=== PATIENT | female | born 1955 | race Caucasian/White ===

== ENCOUNTER 2023-08-13 10:52 | Emergency (ER) | payer MEDICAID ==
[~2023-08-13] VITALS: Ht 154.9 cm; Wt 81.6 kg
[2023-08-13 10:57] VITALS: BP 157/99; PULSE 77; RESP 15; TEMP 97.3; O2SAT 97
[2023-08-13] MEDS ORDERED: FAMOTIDINE 20 MG TAB PO ONE (11:15)
[2023-08-13] MEDS ORDERED: ALUMINUM HYD/MAG/SIMETHICONE 30 ML UDC PO ONE (11:15)
[2023-08-13] MEDS ORDERED: ACETAMINOPHEN EXTRA STRENGTH 500 MG TAB PO ONE (11:15)
[2023-08-13 12:01] LABS: BASOPHILS # (AUTO) 0.1 K/uL (0.00-0.22); BASOPHILS % (AUTO) 0.7 % (0.0-2.0); EOSINOPHILS % (AUTO) 0.6 % (0.0-4.0); HEMOGLOBIN 12.7 g/dL (12.0-16.0); LYMPHOCYTES # (AUTO) 2.2 K/uL (2.5-16.5); MEAN CORPUSCULAR HEMOGLOBIN 31 pg (27-31); MEAN CORPUSCULAR HGB CONC 33 g/dL (33-37); MEAN CORPUSCULAR VOLUME 92.3 fL (80-94); MONOCYTES # (AUTO) 0.6 K/uL (0.8-1.0); MONOCYTES % (AUTO) 7.6 % (1.7-9.3); NEUTROPHILS # (AUTO) 4.6 K/uL (1.8-7.7); NEUTROPHILS % (AUTO) 62.1 % (42.2-75.2); PLATELET COUNT (AUTO) 320 K/uL (140-450); RED BLOOD CELL COUNT(AUTO) 4.12 MIL/uL (4.20-5.40); RED CELL DISTRIBUTION WIDTH 13.3 % (11.6-13.7); WHITE BLOOD COUNT (AUTO) 7.5 K/uL (4.8-10.8)
[2023-08-13 12:25] LABS: APPEARANCE,URINE CLEAR (CLEAR); BILIRUBIN,URINE NEGATIVE (NEGATIVE); BLOOD, URINE NEGATIVE (NEGATIVE); COLOR,URINE YELLOW (YELLOW); LEUKOCYTE ESTERASE ,URINE 1+ (NEGATIVE); NITRITE, URINE NEGATIVE (NEGATIVE); PH,URINE 7.5 (5.0-9.0); PROTEIN,URINE NEGATIVE (NEGATIVE); UGLUCOSE NEGATIVE (NEGATIVE); UROBILINOGEN,URINE 0.2 EU/dL (0.2 - 1)
[2023-08-13 12:27] LABS: ALANINE AMINOTRANSFERASE 35 U/L (12-78); ALBUMIN 3.7 g/dL (3.4-5.0); ALKALINE PHOSPHATASE 86 U/L (50-136); ASPARTATE AMINOTRANSFERASE 27 U/L (15-37); BILIRUBIN,DIRECT 0.1 mg/dL (0.0-0.3); LIPASE 24 U/L (16-77); TOTAL BILIRUBIN 0.5 mg/dL (0.0-1.0); TOTAL PROTEIN, SERUM 7.8 g/dL (6.4-8.2)
[2023-08-13 12:50] LABS: RBC,URINE 0-5 /HPF (0-5)
[2023-08-13 12:51] LABS: BACTERIA,URINE FEW /HPF (None Seen); MUCUS,URINE None Seen /LPF (None Seen); SQUAMOUS EPITHELIAL CELL,UR 0-3 (FEW) /LPF (0-3 (FEW)); TRICHOMONAS,URINE None Seen /HPF (None Seen); WHITE BLOOD CELL CASTS,URINE None Seen /LPF (None Seen); YEAST,URINE None Seen /HPF (None Seen)
[2023-08-13 13:12] LABS: ANION GAP 17.5 (8-16); CALCIUM 9.3 mg/dL (8.5-10.1); CARBON DIOXIDE 24.4 mmol/L (21-32); CREATININE 0.8 mg/dL (0.6-1.3); POTASSIUM 3.9 mmol/L (3.5-5.1)
[2023-08-13] MEDS ORDERED: OMEP20EC11 PO (13:29)
[2023-08-13] MEDS ORDERED: CEPH-588 PO (13:30)
== END 2023-08-13 13:37 | disposition home or self-care (01) ==
LOC: MED 10:52
DX: N39.0 Urinary tract infection, site not specified (principal); K29.70 Gastritis, unspecified, without bleeding; E03.9 Hypothyroidism, unspecified; Z79.899 Other long term (current) drug therapy
CPT/HCPCS: 36415; 76705; 80048; 80076; 81001; 83690; 84484; 85025; 87086; 93005; 99284; Q0092

== ENCOUNTER 2024-01-18 08:06 | Day surgery (SDC) | payer MEDICAID ==
[~2024-01-18] VITALS: Ht 165.1 cm; Wt 72.6 kg
[~2024-01-18 08:06] MED LIST: CEPH-588 PO; OMEP20EC11 PO
[2024-01-18] MEDS ORDERED: fentaNYL citrate 0.05 MG/ML VIAL ONE (09:07)
[2024-01-18] MEDS: fentaNYL citrate 0.05 MG/ML VIAL IVP ONE (09:18)
[2024-01-18] MEDS: LIDOCAINE 2% 100 MG/5 ML UJET TP ONE (09:32)
== END 2024-01-18 10:14 | disposition home or self-care (01) ==
LOC: MDS 08:06 → MMU 08:09 → MDS 10:14
PROVIDERS: ATTEND Internal Medicine Gastroenterology
DX: Z12.11 Encounter for screening for malignant neoplasm of colon (principal); K63.5 Polyp of colon; E03.9 Hypothyroidism, unspecified; Z98.891 History of uterine scar from previous surgery; Z90.89 Acquired absence of other organs; Z98.890 Other specified postprocedural states; Z79.899 Other long term (current) drug therapy
CPT/HCPCS: 45385; J3010

== ENCOUNTER 2024-03-09 13:01 | Emergency (ER) | payer MEDICAID, OTHER ==
[~2024-03-09] VITALS: Ht 154.9 cm; Wt 84.4 kg
[~2024-03-09 13:01] MED LIST changes: -CEPH-588 PO
[2024-03-09 13:05] VITALS: BP 131/86; PULSE 80; RESP 17; TEMP 98.9; O2SAT 97
[2024-03-09] MEDS: IBUPROFEN 600 MG TAB PO ONE (13:46)
[2024-03-09] MEDS ORDERED: IBUP-2213 PO (14:10)
[2024-03-09 14:39] VITALS: BP 125/88; PULSE 66; RESP 16; TEMP 98; O2SAT 99
== END 2024-03-09 14:39 | disposition home or self-care (01) ==
LOC: MED 13:01
DX: M79.672 Pain in left foot (principal); M79.671 Pain in right foot; R03.0 Elevated blood-pressure reading, without diagnosis of hypertension; E03.9 Hypothyroidism, unspecified; Z79.899 Other long term (current) drug therapy
CPT/HCPCS: 73630; 99283

== ENCOUNTER 2024-03-15 12:43 | Emergency (ER) | payer OTHER ==
[~2024-03-15] VITALS: Ht 152.4 cm; Wt 77.1 kg
[~2024-03-15 12:43] MED LIST changes: +IBUP-2213 PO
[2024-03-15 12:52] VITALS: BP 148/85; PULSE 78; RESP 16; TEMP 98; O2SAT 98
[2024-03-15 13:10] VITALS: O2SAT 98
[2024-03-15 13:20] LABS: APPEARANCE,URINE CLEAR (CLEAR); BILIRUBIN,URINE NEGATIVE (NEGATIVE); BLOOD, URINE TRACE-I (NEGATIVE); COLOR,URINE YELLOW (YELLOW); LEUKOCYTE ESTERASE ,URINE TRACE (NEGATIVE); NITRITE, URINE NEGATIVE (NEGATIVE); PROTEIN,URINE NEGATIVE (NEGATIVE); UGLUCOSE NEGATIVE (NEGATIVE); UROBILINOGEN,URINE 0.2 EU/dL (0.2 - 1)
[2024-03-15 13:45] LABS: RBC,URINE 0-5 /HPF (0-5); WBC,URINE 0-5 /HPF (0-5)
[2024-03-15 13:46] LABS: BACTERIA,URINE FEW /HPF (None Seen); SQUAMOUS EPITHELIAL CELL,UR 0-3 (FEW) /LPF (0-3 (FEW))
[2024-03-15] MEDS ORDERED: PYR100 PO (13:51)
[2024-03-15] MEDS ORDERED: NITR100C7 PO (13:51)
== END 2024-03-15 13:58 | disposition home or self-care (01) ==
LOC: MED 12:43
DX: N30.90 Cystitis, unspecified without hematuria (principal); R03.0 Elevated blood-pressure reading, without diagnosis of hypertension; E03.9 Hypothyroidism, unspecified; Z79.1 Long term (current) use of non-steroidal anti-inflammatories (NSAID); Z79.899 Other long term (current) drug therapy
CPT/HCPCS: 81001; 99283

== ENCOUNTER 2024-06-16 20:43 | Emergency (ER) | payer OTHER ==
[~2024-06-16] VITALS: Ht 157.5 cm; Wt 77.1 kg
[~2024-06-16 20:43] MED LIST changes: +NITR100C7 PO; +PYR100 PO
[2024-06-16 20:56] VITALS: BP 174/87; PULSE 81; RESP 20; TEMP 98.6; O2SAT 94
[2024-06-16] MEDS ORDERED: WATER STERILE 10 ML MC ONE (23:32)
[2024-06-16] MEDS ORDERED: methylPREDNISolone SS 125 MG/2 ML VIAL ONE (23:32)
[2024-06-16 23:38] VITALS: BP 174/87; PULSE 81; RESP 20; TEMP 98.6; O2SAT 94
[2024-06-16] MEDS: diphenhydrAMINE 50 MG/ML VIAL IM ONE (23:42)
[2024-06-16] MEDS: methylPREDNISolone SS 125 MG in WATER STERILE 2 ML IM ONE (23:44)
[2024-06-17] MEDS ORDERED: METH4TAB1 PO (00:21)
[2024-06-17] MEDS ORDERED: FEXO180T82 PO (00:21)
== END 2024-06-16 23:30 | disposition home or self-care (01) ==
LOC: MED 20:43
DX: T78.49XA Other allergy, initial encounter (principal); E03.9 Hypothyroidism, unspecified; E03.0 Congenital hypothyroidism with diffuse goiter; Z79.899 Other long term (current) drug therapy; X58.XXXA Exposure to other specified factors, initial encounter
CPT/HCPCS: 96372; 99284; J1200; J2919

== ENCOUNTER 2024-06-21 17:56 | Emergency (ER) | payer OTHER ==
[~2024-06-21] VITALS: Ht 154.9 cm; Wt 82.7 kg
[~2024-06-21 17:56] MED LIST changes: +FEXO180T82 PO; +METH4TAB1 PO
[2024-06-21 18:06] VITALS: BP 196/97; PULSE 78; RESP 18; TEMP 97.6; O2SAT 96
[2024-06-21 19:47] LABS: BASOPHILS % (AUTO) 0.6 % (0.0-2.0); EOSINOPHILS % (AUTO) 0.4 % (0.0-4.0); HEMATOCRIT 38.4 % (36-48); HEMOGLOBIN 12.7 g/dL (12.0-16.0); LYMPHOCYTES # (AUTO) 2.5 K/uL (2.5-16.5); LYMPHOCYTES % (AUTO) 29.6 % (20.5-51.1); MEAN CORPUSCULAR HEMOGLOBIN 31 pg (27-31); MEAN CORPUSCULAR HGB CONC 33 g/dL (33-37); MONOCYTES # (AUTO) 0.6 K/uL (0.8-1.0); MONOCYTES % (AUTO) 7.3 % (1.7-9.3); NEUTROPHILS # (AUTO) 5.2 K/uL (1.8-7.7); NEUTROPHILS % (AUTO) 62.1 % (42.2-75.2); PLATELET COUNT (AUTO) 288 K/uL (140-450); RED BLOOD CELL COUNT(AUTO) 4.17 MIL/uL (4.20-5.40); WHITE BLOOD COUNT (AUTO) 8.3 K/uL (4.8-10.8)
[2024-06-21 20:02] LABS: ANION GAP 13.9 (8-16); CALCIUM 8.4 mg/dL (8.5-10.1); CARBON DIOXIDE 28.7 mmol/L (21-32); CREATININE 0.9 mg/dL (0.6-1.3); POTASSIUM 3.6 mmol/L (3.5-5.1)
[2024-06-21 20:06] LABS: ALBUMIN 3.6 g/dL (3.4-5.0); BILIRUBIN,DIRECT 0.1 mg/dL (0.0-0.3); TOTAL BILIRUBIN 0.2 mg/dL (0.0-1.0); TOTAL PROTEIN, SERUM 7.4 g/dL (6.4-8.2)
[2024-06-21 20:42] VITALS: BP 139/87; PULSE 62; RESP 12; O2SAT 96
[2024-06-21 20:43] LABS: APPEARANCE,URINE CLEAR (CLEAR); COLOR,URINE AMBER (YELLOW); PH,URINE 6.5 (5.0-9.0)
[2024-06-21 20:44] LABS: PROTEIN,URINE NEGATIVE (NEGATIVE); UGLUCOSE NEGATIVE (NEGATIVE)
[2024-06-21 20:46] LABS: BILIRUBIN,URINE NEGATIVE (NEGATIVE); BLOOD, URINE NEGATIVE (NEGATIVE); NITRITE, URINE NEGATIVE (NEGATIVE); UROBILINOGEN,URINE 0.2 EU/dL (0.2 - 1)
[2024-06-21 20:47] LABS: LEUKOCYTE ESTERASE ,URINE TRACE (NEGATIVE)
[2024-06-21 20:55] LABS: BACTERIA,URINE 10-30 (MOD) /HPF (None Seen); SQUAMOUS EPITHELIAL CELL,UR 4-10 (MOD) /LPF (0-3 (FEW))
[2024-06-21] MEDS ORDERED: NITR100C7 PO (21:20)
== END 2024-06-21 21:27 | disposition home or self-care (01) ==
LOC: MED 17:56
DX: N39.0 Urinary tract infection, site not specified (principal); K83.8 Other specified diseases of biliary tract; I10 Essential (primary) hypertension; E03.9 Hypothyroidism, unspecified; Z85.850 Personal history of malignant neoplasm of thyroid; Z98.890 Other specified postprocedural states; Z79.899 Other long term (current) drug therapy
CPT/HCPCS: 36415; 74176; 76705; 80048; 80076; 81001; 83690; 85025; 87086; 99284; Q0092